=== PATIENT | female | born 1975 | race Caucasian/White ===

== ENCOUNTER → 2020-04-29 | Outpatient (REF) | payer OTHER ==
[2020-04-29 12:36] LABS: APPEARANCE, URINE CLEAR (CLEAR); BACTERIA, URINE AUTO NEGATIVE (NEGATIVE); BILIRUBIN, URINE AUTO NEGATIVE (NEGATIVE); BLOOD, URINE BLOOD 2+ (NEGATIVE); COLOR, URINE STRAW (YELLOW); GLUCOSE, URINE (UA) AUTO NEGATIVE (NEGATIVE); KETONE, URINE AUTO NEGATIVE (NEGATIVE); LEUKOCYTE ESTERASE, URINE AUTO NEGATIVE (NEGATIVE); NITRITE, URINE AUTO NEGATIVE (NEGATIVE); PROTEIN, URINE AUTO NEGATIVE (NEGATIVE); RBC, URINE AUTO 3 /HPF (0-3); SPECIFIC GRAVITY URINE AUTO 1.006 (1.002-1.035); SQUAMOUS EPITHELIAL CELL UR AU 0 /HPF (0-6); UROBILINOGEN, URINE AUTO 0.2 mg/dL (0.0-2.0); WBC, URINE AUTO 1 /HPF (0-3)
[2020-04-29 13:09] LABS: CREATININE,RANDOM URINE 39.9 MG/DL
[2020-04-29 13:28] LABS: BASO # 0.1 10^3/uL (0.0-0.2); BASO % 0.7 % (0.0-1.0); EOS # 0.1 10^3/uL (0.0-0.5); EOS % 1.2 % (0.0-3.0); HEMATOCRIT 47.1 % (36.0-47.0); HEMOGLOBIN 15.1 g/dl (12.0-15.5); LYMPH # 1.7 10^3/uL (1.5-5.0); LYMPH % 22.8 % (24.0-44.0); MEAN CORPUSCULAR HGB CONC 32.1 g/dl (32.0-36.5); MEAN CORPUSCULAR VOLUME 90.4 fl (80.0-96.0); MONO # 0.5 10^3/uL (0.0-0.8); MONO % 6.2 % (0.0-5.0); NEUTROPHILS # 5.1 10^3/uL (1.5-8.5); NEUTROPHILS % 68.6 % (36.0-66.0); PLATELET COUNT, AUTOMATED 323 10^3/uL (150-450); RED BLOOD COUNT 5.21 10^6/uL (4.00-5.40); WHITE BLOOD COUNT 7.5 10^3/uL (4.0-10.0)
[2020-04-29 13:35] LABS: PHOSPHORUS LEVEL 2.8 MG/DL (2.5-4.9)
[2020-04-29 14:21] LABS: TOTAL 25(OH) VITAMIN D 15.7 NG/ML (30.0-100.0)
[2020-05-01 10:02] LABS: PTT LUPUS TYPE ANTICOAG SCREEN 0.8 (0-1.2)
[2020-05-01 16:12] LABS: ANTI CENTROMERE ANTIBODY <0.2 AI (0.0-0.9); ANTI DS-DNA AB Negative (Negative); ANTI SCLERODERMA ANTIBODIES <0.2 AI (0.0-0.9); ANTI-HISTONE ANTIBODIES 0.9 Units (0.0-0.9); BETA-2 GLYCOPROTEIN I ABY IGA 141 (0-25); BETA-2 GLYCOPROTEIN I ABY IGG <9 (0-20); BETA-2 GLYCOPROTEIN I ABY IGM <9 (0-32); CARDIOLIPIN IGA ANTIBODY <9 APL U/mL (0-11); CARDIOLIPIN IGG ANTIBODY <9 GPL U/mL (0-14); CARDIOLIPIN IGM ANTIBODY 9 MPL U/mL (0-12); COMPLEMENT TOTAL (CH50) > 60 U/mL (>41); SSA SJOGRENS A <0.2 AI (0.0-0.9); SSB SJOGRENS B <0.2 AI (0.0-0.9)
== END ==
LOC: M SFHCRHEU 10:22
PROVIDERS: ATTEND Internal Medicine
DX: R76.8 Other specified abnormal immunological findings in serum (principal); M79.10 Myalgia, unspecified site
CPT/HCPCS: 81001; 82306; 82550; 82570; 82607; 83520; 83540; 84100; 85025; 85730; 86146; 86147; 86160; 86162; 86225; 86235; 86255; G0463

== ENCOUNTER → 2020-06-12 | Outpatient (CLI) | payer OTHER ==
--- NOTE | 2020-06-12 13:23 | REP ---
INDICATION: JOINT PAIN. COMPARISON: None. TECHNIQUE: AP pelvis and AP and frogleg views of both hips are provided. FINDINGS: The bony pelvic ring is intact. Sacrum and SI joints are intact. Symphysis pubis is unremarkable. Femoral heads are smooth and rounded hip joint spaces are preserved bilaterally. Periarticular soft tissues are unremarkable. No erosive changes are seen. IMPRESSION: Negative AP pelvis and bilateral hip study. <Electronically signed by Bobby Garrison > 06/12/20 [id number]
--- NOTE | 2020-06-12 13:25 | REP ---
INDICATION: JOINT PAIN/GOING TO SLEEP LAB FIRST. COMPARISON: None. TECHNIQUE: Four views of each hand, total of 8 views presented. FINDINGS: Four views of the each hand demonstrate overall normal mineralization. Joint spaces are preserved. No erosive changes are seen. Soft tissues are unremarkable.. No fracture or subluxation is seen. No opaque foreign body noted. IMPRESSION: Negative bilateral hand radiographic series. <Electronically signed by Bobby Garrison > 06/12/20 [id number]
--- NOTE | 2020-06-13 18:20 | SLEEPHOME ---
DIAGNOSTIC HOME SLEEP STUDY DATE: 06/12/2020 ORDERED BY: Kristie Barrett M.D. Diagnostic home sleep testing was performed due to concern for the obstructive sleep apnea syndrome in this patient with a history of chronic fatigue. For testing a nocturnal T3 respiratory monitoring device was used. Continuous record was made of pulse, oxygen saturation, air flow, chest and abdominal strain, and body position. 9 hours and 59 minutes of data were reviewed. There were 7 hours and 20 minutes marked as time in bed. During the interval marked time in bed, there were 65 respiratory events identified of 10 seconds in duration or greater for a respiratory event index 8.9. The events were primarily obstructive though mixed and central apneas were also seen. Baseline pulse rate was 72 beats per minute. Pulse rate range 58 to 113. Baseline saturation was 93%. Saturations fell to 85%. Testing was performed in both the supine and non-supine positions. IMPRESSION: Abnormal home sleep testing with repetitive respiratory events and oxygen desaturations to 85% with a respiratory event index of 8.9 is consistent with the obstructive sleep apnea syndrome. RECOMMENDATION: the patient should be encourage to undergo a formal sleep evaluation.
== END ==
LOC: M SLEEP HO 08:05
PROVIDERS: ATTEND Internal Medicine
DX: R53.82 Chronic fatigue, unspecified (principal); M25.559 Pain in unspecified hip; M79.643 Pain in unspecified hand
CPT/HCPCS: 73130; 73521; G0399

== ENCOUNTER → 2020-06-17 | Outpatient (REF) | payer OTHER ==
[2020-06-21 19:06] LABS: ANA (HEP2) Negative (.); ANTI SMITH(Sm) AB <20 Units (<20); ANTI-U1 RNP AB <20 Units (<20)
== END ==
LOC: M SFHCRHEU 12:50
PROVIDERS: ATTEND Internal Medicine
DX: R76.8 Other specified abnormal immunological findings in serum (principal)
CPT/HCPCS: 84156; 86038; 86235; G0463

== ENCOUNTER → 2020-07-31 | Outpatient (CLI) | payer OTHER ==
--- NOTE | 2020-07-31 10:12 | REP ---
INDICATION: rt hip pain, ? INTERNAL DERANGEMENT injury August 2019 in November 2019, pain COMPARISON: None. TECHNIQUE: Coronal T1, STIR through the pelvis, axial, coronal, sagittal T2 fat sat right hip. FINDINGS: The visualized osseous structures demonstrate normal bone marrow signal. There is no bone marrow edema or occult fracture. There is no evidence of avascular necrosis. Labrum demonstrates no definite evidence of a tear. There is no paralabral cyst. Surrounding soft tissue structures demonstrate no abnormal signal. There is no joint effusion. There is a 1 cm fibroid noted in the left posterior uterus. IMPRESSION: Negative MRI right hip. <Electronically signed by Dex Waldron > 07/31/20 [id number]
== END ==
LOC: M PLARAD 08:28
PROVIDERS: ATTEND Internal Medicine
DX: M25.551 Pain in right hip (principal)

== ENCOUNTER → 2021-01-09 | Outpatient (REF) | payer OTHER | LOC: M SFHCRHEU 13:25 | PROVIDERS: ATTEND Internal Medicine | DX: E55.9 Vitamin D deficiency, unspecified (principal) | CPT/HCPCS: 82306; G0463 ==

== ENCOUNTER → 2022-10-14 | Outpatient (REF) | payer OTHER | LOC: M SMT 13:08 | PROVIDERS: ATTEND Urology | DX: R31.29 Other microscopic hematuria (principal) | CPT/HCPCS: 88108; G0463 ==

== ENCOUNTER → 2024-01-06 | Outpatient (CLI) | payer OTHER | LOC: M SLEEP 20:00 | PROVIDERS: ATTEND Physician Assistant | DX: G47.33 Obstructive sleep apnea (adult) (pediatric) (principal); R06.83 Snoring ==